=== PATIENT | female | born 1975 | race Caucasian/White ===

== ENCOUNTER 2016-07-31 18:23 | Inpatient (IN) | payer OTHER ==
[~2016-07-31] VITALS: Ht 169.7 cm; Wt 83.0 kg
[2016-07-31] MEDS ORDERED: Lactated Ringer's 1,000 ML IV PRN (19:39)
[2016-07-31] MEDS ORDERED: Carboprost 250 mCg/mL Inj IM PRN (19:40)
[2016-07-31] MEDS ORDERED: fentaNYL-PF 50 mCg/mL 2 mL Inj IVPUSH PRN (19:40)
[2016-07-31] MEDS ORDERED: Oxytocin 10 Unit/mL Inj IM PRN (19:40)
[2016-07-31] MEDS ORDERED: Hemorrhage Kit, Post Partum XX ONE (19:40)
[2016-07-31] MEDS ORDERED: Oxytocin 30 Units/500 mL LR 30 UNITS in IV Premix 1 EACH IV PRN (19:40)
[2016-07-31] MEDS ORDERED: Sodium Chloride LOK Flush 10 mL Syringe IVFLUSH PRN (19:40)
[2016-07-31] MEDS ORDERED: Methylergonovine 0.2 mg/mL Inj IM PRN (19:40)
[2016-07-31] MEDS ORDERED: Ondansetron 2 mg/mL 2 mL Inj IVPUSH PRN (19:40)
[2016-07-31] MEDS ORDERED: Penicillin G K Inj 5,000,000 UNITS in Dextrose 5% Minibag Plus 100 ML IV ONE (19:40)
[2016-07-31] MEDS ORDERED: Betameth Ace-Betam SodPhos 6 mg/mL 5 mL Inj IM ONE (19:45)
[2016-07-31 20:01] LABS: Mean Corpuscular Hemoglobin 31.8 pg (27.0-35.0); Mean Corpuscular Volume 90.8 fL (81-100)
[2016-07-31] MEDS: Lactated Ringer's 1,000 ML IV SCH (21:38)
--- NOTE | 2016-08-01 02:19 | HP ---
[address] [address] HISTORY AND PHYSICAL PATIENT: ANNETTE REESE : 1975 MR#: [id number] ADMIT: 07/31/2016 JOB ID: [id number] HISTORY OF PRESENT ILLNESS: This is a 40-year-old female. She is 9, para 4-2-2-6, at 35 weeks. Patient presented to [facility] for slight leaking of fluid at 2 p.m. today and gush of fluid at 4 p.m. today. She is a patient who has been seeing at [facility]. She started her OB care at 28 weeks. Her last period was November 29, 2015. Due date September 12, 2016, by last menstrual period. At 28 weeks ultrasound there was eight day difference. The final due date will be September 04, 2016. During her care, it was noticed that she has been using meth during and she also has a history of Vicodin abuse. The one hour glucose testing was 177. Her three hour glucose testing is not available, and her other blood tests noticed that she is Chlamydia and gonorrhea negative. Pap smear negative. Her hemoglobin A1c was 5.7. Her varicella immune, her HIV is negative. Hepatitis B negative. ALLERGIES: This patient has allergy reaction to SULFA. PAST MEDICAL HISTORY: Includes depression and anxiety. PAST SURGICAL HISTORY: History of cervical ablation and termination of . GYNECOLOGIC HISTORY: She has regular menstruation. Her last menstrual period November 29, 2015. OBSTETRICAL HISTORY: She is 9, para 6. She had her first in 1993, vaginal delivery at 33 weeks induction for preeclampsia. Second 1994, vaginal delivery at 37 weeks. Fourth in 1996, vaginal delivery at 38 weeks. Fifth 1998, vaginal delivery at 38 weeks. Sixth 1999, vaginal delivery at 38 weeks. Seventh was termination of in 2004. Eighth was a vaginal delivery in 2012 at 36 weeks. SOCIAL HISTORY: She has history of depression and anxiety. She is a chronic smoker. She smokes 1.5 packs per day for many years and decreased to 12 cigarettes a day from early May. She is still using alcohol during , one pack of beer per week. She also used meth; the last use was May 2016. She has a history of Vicodin abuse, she uses three more than prescribed dosage for shoulder pain. PHYSICAL EXAMINATION: The patient is afebrile. Blood pressure 109/78. Her pulse 99. She was confirmed rupture of membranes with clear fluid. She has occasional contractions. Cervical examination deferred at this time. heart tracing was category 1. Cardiac: RR. No murmur. Pulmonary: Bilaterally clear. Abdomen: Gravid, nontender. Extremities: Nontender. ASSESSMENT AND PLAN: This is a 40-year-old female 9, para 6, at 35 weeks of , premature rupture of membranes. At this time, no signs of infection. 1. We will start her on penicillin for unknown GBS status at premature rupture membranes. 2. We will start her on betamethasone 12 mg IM. If she has not delivered in 24 hours next dose will be due in 24 hours. 3. Patient can get epidural for pain if she prefers to in labor. 4. She will need social insurance adviser service for history of drug abuse. 5. We will monitor labor progress for abnormal GCT 177 and unknown GTT test. At this time, suspected gestational diabetes. 6. Expect vaginal delivery. 7. For grand multiparity will watch for hemorrhage. Get hemorrhagic medications ready in the delivery room. 8. Patient planned desire for tubal ligation after delivery. MTDD
[2016-08-01] MEDS: Penicillin G K Inj 3,000,000 UNITS in IV Premix 1 EACH IV SCH ×2 (02:43→06:52)
[2016-08-01] MEDS: Ampicillin Inj 2,000 MG in 0.9% Sodium Chloride 100 ML IV SCH ×3 (10:52→23:39)
--- NOTE | 2016-08-01 12:06 | DRSVH ---
PROCEDURE: US OB FOLLOW UP GROWTH INDICATIONS: GROWTH OUTSIDE/PRIOR DATING DATA: Last menstrual period (LMP): 11/29/15. LMP-based estimated date of delivery (CASSIUS): 09/04/16. First dating scan (date and location): 06/10/16, [facility]. Estimated date of delivery (CASSIUS) from first dating scan: 08/27/16. TECHNIQUE: Real-time scanning was performed of the fetus, with image documentation and biometric measurements. COMPARISON: [facility], US, US OB>14 WKS ANATOMY COMP, 06/10/2016, 13:14. FINDINGS: General: A single living intrauterine gestation is present. Presentation: Vertex. Placenta: Placental position is anterior, without previa. OB-PRESERVATIVE FILLER MACHINE OPERATOR Ultrasound Procedure Report Summary Fetus Summary Estimated Gestational Age from first dating scan: 36 weeks, 2 days Estimated Gestational Age from present scan: 35 weeks, 5 days Estimated Weight (EFW): 2725 g EFW percentile rank: 34 % Heart Rate: 127 bpm Findings(Amniotic Sac) Amniotic Fluid Index: 3.90 cm Biometry BiometryGroup Biparietal Diameter (Mean): 8.96 cm Gestational Age (BPD): 36 weeks, 2 days Head Circumference (Mean): 31.88 cm Gestational Age (HC): 35 weeks, 6 days Abdominal Circumference (Mean): 31.71 cm Gestational Age (AC): 35 weeks, 4 days Femur Length (Mean): 6.86 cm Gestational Age (FL): 35 weeks, 2 days Pelvis and Uterus Cervix Length: Not well seen. Measurement variability in biometric dating: +/- 10 days from 12-20 weeks gestation, +/- 2 weeks from 20-30 weeks gestation, +/- 3 weeks at 30 weeks gestation or more. Other: Not applicable. IMPRESSION: 1. Normal interval growth. 2. Oligohydramnios with amniotic fluid index measuring 3.9 cm in this patient with history of prematu re ruptured membranes. 3. Single wrap nuchal cord noted. Dayanna Sherwood RN given results by the medical education coordinator at 1020 hrs. 08/01/2016. Dictated by: Bernard KEITAA Interpreted: Katelyn Patel MD on 08/01/2016 at 12:04 Transcribed by: EDU on 08/01/2016 at 12:05 Approved by: Katelyn Patel MD, PhD on 08/01/2016 at 16:57
--- NOTE | 2016-08-01 13:28 | PROG NOTE ---
[address] [address] PROGRESS NOTE PATIENT: ANNETTE REESE : 1975 MR#: [id number] ADMIT: 07/31/2016 JOB ID: [id number] DATE: 08/01/2016 HISTORY OF PRESENTING ILLNESS: This is a 40-year-old 9, para 4-2-2-6 at 35 weeks and one day based on expected date of delivery of September 04, 2016, dated by last menstrual period and consistent with a 28-week ultrasound. The patient is admitted with premature rupture of membranes. Time of rupture July 31, 2016 at 1400. The patient continued to have a small amount of clear fluid with no uterine tenderness, good movement, no contractions, and denies fevers or chills. HISTORY: Problem list during this : 1. Late to care. 2. Advanced maternal age. 3. Multiparous. 4. History of preeclampsia and 1st was induced at 33 weeks. 5. History of delivery at 33 weeks secondary to induction for preeclampsia and history of spontaneous labor at 36 weeks. 6. Depression and anxiety, not on medication. The patient is seeing a psychiatrist at [facility] in [place]. The patient does not desire to start medication at this time. Would like to defer until her followup with the psychiatrist is scheduled, August 06, 2016. 7. Cigarette smoking. 8. Drug exposure during : Alcohol in the 1st two months of the in November and December; the patient quit since. Meth use May 2016; the patient quit since. 9. History of Vicodin abuse in the past. The patient denies current use. UDS screening negative during this admission. 10. Elevated 1-hour diabetes screen; 3 hours not done. 11. History of abnormal Pap smear in the past followed by normal Pap smears. 12. History of elective termination of and suction D and C in 2004. 13. The patient desires interval tubal ligation after six weeks recovery. Signed consent 2016. PHYSICAL EXAMINATION: Vital signs: Blood pressure 108/71, heart rate 81, respiratory rate 16, temperature 36.6. heart tones 120, moderate variability. Positive accelerations, no decelerations. Contractions irregular. General: Alert, oriented to time, place, and person. Head: Normocephalic, atraumatic. Neck: Supple. Chest: Equal air entry bilaterally. No added sounds. Cardiovascular: S1 plus S2 plus zero. Abdomen: Gravid. No tenderness. Lower extremities: No edema. Imaging: Ultrasound was performed today. Final report is pending. PAST SURGICAL HISTORY: History of right knee surgery 1990. LABORATORY: On admission white blood cell count 9.2, red blood cells 5.35, hemoglobin 17, hematocrit 48.6. Urine drug screen negative. labs: Blood type O positive. Rubella immune. RPR nonreactive. Hepatitis B nonreactive. HIV nonreactive. Urine culture negative June 06, 2016. Gonorrhea and Chlamydia screen negative June 11, 2016. Pap smear within normal limits and HPV negative. Diabetes screening 177. Three hours ordered and not done yet. ASSESSMENT: This is a 11-gnmff-oms nine para 4-2-2-6 at 35 weeks and 1 day with expected date of delivery of September 04, 2016, by last menstrual period and consistent with 28-week ultrasound, with: 1. premature rupture of membranes on July 31, 2016 at 1400. GBS unknown and cultures are pending. No signs of labor. No signs of chorioamnionitis. 2. Possible GDM, elevated 1 hr GTT, 3 hrs not done,S/P steroid. PLAN: 1. [facility] service (), stable PPROM at or after 34 weeks of gestation the current practice at [facility] based on new ACOG recommendations is to student services counselor patient and partner regarding induction of labor vs steroid and broad spectrum antibiotics to allow for steroid course or if possible up to 35 or 36 weeks is acceptable based on patient and partner decision after counseling. Discussed management plan, induction of labor at this time vs expectant management and complete steroid for lung maturity, followed by induction after 24 hours of the second dose of steroid or waiting for an additional week or two , as long as there are no signs of labor or infections. The risks, benefits, and alternatives of each approach were discussed with the patient. The patient dose not want to be induced today and desires to complete the steroid dose and to be induced 24 hours later. monitoring Q 12 hours. Vital signs Q4-6 hours. 2. Will continue to monitor glucose fasting and 1 hour post prandial with possible hyperglycemia secondary to steroid. MTDD
[2016-08-01] MEDS: Erythromycin Inj 250 MG in 0.9% Sodium Chloride 100 ML IV SCH ×3 (13:50→20:08)
[2016-08-01] MEDS: Lactated Ringer's 1,000 ML IV SCH ×2 (17:23→19:39)
[2016-08-01] MEDS ORDERED: Betameth Ace-Betam SodPhos 6 mg/mL 5 mL Inj ONE (21:45)
[2016-08-01] MEDS ORDERED: Betameth Ace-Betam SodPhos 6 mg/mL 5 mL Inj IM ONE (21:55)
[2016-08-02] MEDS: Erythromycin Inj 250 MG in 0.9% Sodium Chloride 100 ML IV SCH ×4 (02:05→20:27)
[2016-08-02] MEDS: Lactated Ringer's 1,000 ML IV SCH ×4 (03:39→20:27)
[2016-08-02] MEDS: Ampicillin Inj 2,000 MG in 0.9% Sodium Chloride 100 ML IV SCH ×4 (05:05→23:30)
[2016-08-02 07:19] LABS: BASOPHILS % (AUTO) 0.1 % (0-3); EOSINOPHILS % (AUTO) 0 % (0-5); MONOCYTES % (AUTO) 3.8 % (4-12); Mean Corpuscular Hemoglobin 31.3 pg (27.0-35.0); Mean Corpuscular Volume 94.8 fL (81-100); NEUTROPHILS % (AUTO) 88.2 % (40-74); Platelet Count 253 bil/L (150-400)
--- NOTE | 2016-08-02 12:25 | PROG NOTE ---
[address] [address] PROGRESS NOTE PATIENT: ANNETTE REESE : 1975 MR#: [id number] ADMIT: 07/31/2016 JOB ID: [id number] DATE: 08/02/2016 SUBJECTIVE: This is a 40-year-old 9, para 4-2-2-6 at 35 weeks and 2 days admitted for premature rupture of membranes. Time of rupture July 31, 2016 at 1400. Today the patient continued to have a small amount of clear fluid with no abdominal pain and good movement. No fever, no chills, and no contractions. Denies any foul odor, vaginal discharge, or fluid. PROBLEM LIST DURING THIS : 1. Late to care. 2. Advanced maternal age. 3. Multiparous. 4. History of preeclampsia and 1st was induced at 33 weeks. 5. History of delivery at 33 weeks secondary to induction for preeclampsia and history of spontaneous labor at 36 weeks. 6. Depression and anxiety, not on medication. The patient is seeing a psychiatrist at [facility]. The patient does not desire to start medication at this time. Would like to defer until her followup with the psychiatrist is scheduled, August 06, 2016. 7. Cigarette smoking. 8. Drug exposure during : Alcohol in the 1st two months of the in November and December; the patient quit since. Meth use May 2016; the patient quit since. 9. History of Vicodin abuse in the past. The patient denies current use. UDS screening negative during this admission. 10. Elevated 1-hour diabetes screen; 3 hours not done. 11. History of abnormal Pap smear in the past followed by normal Pap smears. 12. History of elective termination of and suction D and C in 2004. 13. The patient desires interval tubal ligation after six weeks recovery. Signed consent 2016. OBJECTIVE: Vital signs: Blood pressure 106/60, heart rate 81, respiratory rate 18, temperature 36.8. T-max since admission is 36.9. No fever. General: Alert. Oriented to time, place, and person. Respiratory: Breathing without difficulty. Abdomen: Gravid. No tenderness. Lower extremities: No edema. heart tones with a baseline of 120, moderate variability. Positive accelerations and no decelerations in the last 24 hours. The strip was reviewed. The patient on q.12 monitoring. Tocometry: Rare contractions. One or less contraction in 10 minutes. LABORATORY DATA: White blood cells 13.4, was 9.2 on admission. Hemoglobin 9.7, was 17 on admission. Hematocrit 29.4, was 48.6 on admission. UDS negative on admission. Group B strep culture is pending. ASSESSMENT: This is a 40-year-old 9, para 4-2-2-6 at 35 weeks and 1 day with: 1. Premature rupture of membranes since July 31, 2016 at 1400. GBS unknown and cultures pending. No signs of chorioamnionitis. No signs of labor. Will start induction of labor August 03, 2016 , for staff availability. Will continue to monitor and may induce earlier if having signs or symptoms of chorioamnionitis or signs of labor. 2. Elevated 1-hour diabetes screen; 3 hours not done. Possible gestational diabetes mellitus (GDM) or hyperglycemia possibly secondary to betamethasone. The second dose of betamethasone was given August 01, 2016 at 2155. Postprandial glucose 180s. We will continue to monitor fasting and postprandial glucose. The patient was counseled to follow a gestational diabetic diet. May consider medications if failed diet. 3. Smoker; nicotine patch ordered. 4. Anemia , significant drop in Hgb from 17 on admision to 9.7, repeat H/H 10.4 and 31%. No signs of active bleeding. Started on Iron. MTDD
[2016-08-02] MEDS ORDERED: Ascorbic Acid 500 mg Tablet PO SCH (20:30)
[2016-08-03] MEDS ORDERED: diphenhydrAMINE 50 mg Capsule PO PRN (02:10)
[2016-08-03] MEDS: Erythromycin Inj 250 MG in 0.9% Sodium Chloride 100 ML IV SCH (03:30)
[2016-08-03] MEDS: Lactated Ringer's 1,000 ML IV SCH ×8 (03:39→19:43)
[2016-08-03] MEDS ORDERED: Oxytocin 30 Units/500 mL LR 30 UNITS in IV Premix 1 EACH IV PRN ×2 (03:45→10:40)
--- NOTE | 2016-08-03 03:55 | PCM.PNOBIP ---
Subjective Date of Service Aug 03, 2016 Subjective starting to feel contractions are getting stronger. Gastrointestinal: Good Appetite, No N/V Labs Blood type O positive. Rubella immune. RPR nonreactive. Hepatitis B nonreactive. HIV nonreactive. Gonorrhea and Chlamydia screen negative June 11, 2016. Diabetes screening 177. Three hours ordered and not done yet. Labs Laboratory Tests 08/02/16 06:52: White Blood Count 13.4, Red Blood Count 3.10, Mean Corpuscular Volume 94.8, Mean Corpuscular Hemoglobin 31.3, Mean Corpuscular Hemoglobin Concent 33.0, Red Cell Distribution Width 14.2, Platelet Count 253, Neutrophils (%) (Auto) 88.2, Lymphocytes (%) (Auto) 7.5, Monocytes (%) (Auto) 3.8, Eosinophils (%) (Auto) 0, Basophils (%) (Auto) 0.1 08/02/16 12:30: Hemoglobin 10.4, Hematocrit 31.9 Exam Vital Signs Vital Signs Contraction frequency in minutes: MVUs: Vital Signs: VS reviewed, stable Heart Tracings Heart Tones Baseline 150 bpm Heart Rate Variability: Minimal (-moderate ) Heart Rate Accelleration: Absent Heart Rate Deceleration: Present Heart Rate Category: II Tocometry/IUPC Contraction frequency in minutes: MVUs: Sterile Vaginal Exam Cervical Dilation: 4 cms Cervical Effacement: 60 % Station: -3 Exam Abdomen: Uterus is (non-tender) General: Oriented X3, Cooperative OB Intrapartum Assessment/Plan Assessment This is a 39-cjbzi-bfo nine para 4-2-2-6 at 35 weeks and 3 day, CASSIUS of September 04, 2016, by last menstrual period and consistent with 28-week ultrasound, with: 1. Prtemature rupture of membranes on July 31, 2016 at 1400, GBS unknown and cultures are pending.On Ampicillin and erythromycin. 2. Early labor will augment with Pitocin. Favorable cervix clayton score 7 3. No signs of chorioamnionitis. FHT baseline was 120's and now 150's. 2. Possible GDM vs hyperglycemia secondary to steroid. , elevated 1 hr GTT, 3 hrs not done. 1 hr PP Glucose levels: 180's , then 145's, and 120's. Davey Posey MD Aug 03, 2016 03:55
[2016-08-03] MEDS: Ampicillin Inj 2,000 MG in 0.9% Sodium Chloride 100 ML IV SCH (06:00)
[2016-08-03 06:05] LABS: BASOPHILS % (AUTO) 0.1 % (0-3); EOSINOPHILS % (AUTO) 0.2 % (0-5); MONOCYTES % (AUTO) 9.6 % (4-12); Mean Corpuscular Hemoglobin 31.2 pg (27.0-35.0); Mean Corpuscular Volume 95.9 fL (81-100); NEUTROPHILS % (AUTO) 70.6 % (40-74); Platelet Count 233 bil/L (150-400)
[2016-08-03] MEDS ORDERED: Oxytocin 10 Unit/mL Inj IM PRN (10:40)
[2016-08-03] MEDS ORDERED: LANOlin HPA 7 Gm Ointment TOPICAL PRN (10:40)
[2016-08-03] MEDS ORDERED: Methylergonovine 0.2 mg/mL Inj IM PRN (10:40)
[2016-08-03] MEDS ORDERED: Witch Hazel-Glycerin Pads TOPICAL PRN (10:40)
[2016-08-03] MEDS ORDERED: Hemorrhage Kit, Post Partum XX ONE (10:40)
[2016-08-03] MEDS ORDERED: Carboprost 250 mCg/mL Inj IM PRN (10:40)
[2016-08-03] MEDS ORDERED: Benzocaine (Dermoplast) 20% 60 Gm Spray TOPICAL PRN (10:40)
--- NOTE | 2016-08-03 11:04 | PCM.OBVAG ---
Vaginal Delivery Date of Service Aug 03, 2016 Pre Operative Diagnosis Pre Operative Diagnosis 1. PPROM 2. 35 weeks gestation 3. AMA Post Operative Diagnosis Post Operative Diagnosis 1. PPROM 2. 35 weeks gestation 3. AMA Procedure Obstetical Procedure: Normal Spontaneous Vaginal Delivery Costume Specialist/Vocational Case Manager Provider and Vocational Case Manager: Teressa Thomas MD Resident: Rekha Srinivasan DO PGY1 Indication for Procedure Indication for Procedure This is a 40-year-old 9, para 4-2-2-6 at 35 weeks and 2 days admitted for premature rupture of membranes. Time of rupture July 31, 2016 at 1400. Induction: Induction of labor, Pitocin augmentation Findings Findings: This is a 40-year-old 9, para 4-2-2-6 at 35 weeks and 2 days admitted to L&D on 07/31/2016 for premature rupture of membranes. Time of rupture July 31, 2016 at 1400. At the time of admission there were no signs of infection. She was started on ampicillin and erythromycin for unknown GBS status at PPROM. She received two doses of betamethasone 24 hours apart. On 08/03 early labor was augmented with Pitocin. Her cervix was complete on 2018 around 09:17 am. Patient started to push efficiently at that time. Maternal pushing efforts were coached during the entire time. Infant head delivered in left occiput anterior position at 09:19 am. Nuchal cord x1 was noted. There was enough to be reduced over the baby's head. Infant placed over mom's chest. It was a single viable female , Apgars 7/8, weight of 2501g. Cord clamped and cut. Placenta followed spontaneously at 09:23 am. Upon inspection, it was noted to be intact with three-vessel cord marginally inserted. Placenta sent to Pathology. Inspection of the perineum revealed no lacerations. Mother is recovering in stable condition in labor and delivery room. The baby is recovering under observation at nursery. Obstetrical Findings: [place] (Female), Cord (3 Vessel), Weight ( 2501 grams), Presentation (Vertex), 1 minute (7), 5 minutes (8) Analgesia/Medications Procedural Analgesia: None Specimen Specimens: Placenta Blood Loss & Administration Blood Admin during procedure: No Post Procedure Plan Post Procedure Plan Routine monitoring with anticipated discharge on day 1. Pain control with Percocet and Ibuprofen. VTE Prophylaxis: SCDs Attending Statement I was present for the entire procedure and assisted Dr. Srinivasan as needed and agree with the above documentation. Rekha Srinivasan DO Aug 03, 2016 11:04 TIM VANEGAS DO Aug 04, 2016 09:49 Teressa Thomas MD Aug 08, 2016 11:56
[2016-08-03] MEDS: Ascorbic Acid 500 mg Tablet PO SCH ×2 (11:12→17:49)
[2016-08-03] MEDS: HYDROcodone-APAP 5-325 mg Tablet PO PRN ×3 (11:12→20:38)
[2016-08-04] MEDS: HYDROcodone-APAP 5-325 mg Tablet PO PRN ×3 (00:42→10:35)
[2016-08-04 07:02] LABS: BASOPHILS % (AUTO) 0.1 % (0-3); EOSINOPHILS % (AUTO) 0.5 % (0-5); MONOCYTES % (AUTO) 8.8 % (4-12); Mean Corpuscular Hemoglobin 31.8 pg (27.0-35.0); Mean Corpuscular Volume 96.5 fL (81-100); NEUTROPHILS % (AUTO) 66.4 % (40-74); Platelet Count 218 bil/L (150-400)
--- NOTE | 2016-08-04 08:22 | PCM.DC.OB ---
Obstetrical Discharge Summary Date of Service Aug 04, 2016 Date of hospital admission Jul 31, 2016 at 19:10 Date of Discharge: Aug 04, 2016 Providers Admitting Physician: Bora Lee MD Primary Care Physician: Eugenie Anderson MD Attending Physician: Bora Lee MD Problems: (1) Depression Status: Acute ICD Code: F32.9 (2) delivery Status: Acute ICD Code: O60.10X0 (3) Chronic anemia Status: Acute ICD Code: D64.9 Hospital Course: This is a 40-year-old 9, now para 4-3-2-7 at 35 weeks and 2 days admitted for premature rupture of membranes. Time of rupture July 31, 2016 at 1400. 1. Status post normal vaginal delivery on 08/03/16 2. Chronic anemia. 3. Depression. COMPLICATED WITH: 1. Late to care. 2. Advanced maternal age. 3. Multiparous. 4. History of preeclampsia and 1st was induced at 33 weeks. 5. History of delivery at 33 weeks secondary to induction for preeclampsia and history of spontaneous labor at 36 weeks. 6. Depression and anxiety, not on medication. The patient is seeing a psychiatrist at [facility]. The patient does not desire to start medication at this time. Would like to defer until her followup with the psychiatrist is scheduled, August 06, 2016. 7. Cigarette smoking. 8. Drug exposure during : Alcohol in the 1st two months of the in November and December; the patient quit since. Meth use May 2016; the patient quit since. 9. History of Vicodin abuse in the past. The patient denies current use. UDS screening negative during this admission. 10. Elevated 1-hour diabetes screen; 3 hours not done. 11. History of abnormal Pap smear in the past followed by normal Pap smears. 12. History of elective termination of and suction D and C in 2004. 13. The patient desires interval tubal ligation after six weeks recovery. Signed consent 2016. OUTCOME: [place] (Female), Cord (3 Vessel), Weight (2501 grams/5lb 8oz), Presentation (Vertex), 1 minute (7), 5 minutes (8). DISCHARGE DAY EXAM: Postopartum day number 1, patient is ambulating, tolerating regular diet without nausea or vomiting and voiding without difficulty. Pain was well controlled. No chest pain, no headache or change in vision. History of depression was on medications (Wellbutrin) before . Desires to wait to start medications until she call psychiatrist or until follow up with psychiatrist in 2 days. VS: 124/80 61 16 36.7 General: Alert, Oriented X3 Lungs: Clear to Auscultation, Clear to Percussion Heart: Regular Rate/Rhythm, Normal S1, Normal S2 Abdomen: Fundus firm Extremities: No tenderness/swelling, Edema 1+ Lochia: normal. LABS: Laboratory Tests 72 Hours Test 08/02/16 06:52 08/02/16 12:30 08/03/16 05:58 08/04/16 06:55 White Blood Count 13.4th/mm3 (3.8-10.1) 14.0th/mm3 (3.8-10.1) 14.4th/mm3 (3.8-10.1) Red Blood Count 3.10mil/mm3 (3.90-5.20) 2.95mil/mm3 (3.90-5.20) 3.11mil/mm3 (3.90-5.20) Hemoglobin 9.7g/dL (12.0-15.6) 10.4g/dL (12.0-15.6) 9.2g/dL (12.0-15.6) 9.9g/dL (12.0-15.6) Hematocrit 29.4% (35.0-46.0) 31.9% (35.0-46.0) 28.3% (35.0-46.0) 30.0% (35.0-46.0) Mean Corpuscular Volume 94.8fL (81-100) 95.9fL (81-100) 96.5fL (81-100) Mean Corpuscular Hemoglobin 31.3pg (27.0-35.0) 31.2pg (27.0-35.0) 31.8pg (27.0-35.0) Mean Corpuscular Hemoglobin Concent 33.0% (32.0-37.0) 32.5% (32.0-37.0) 33.0% (32.0-37.0) Red Cell Distribution Width 14.2% (12.3-15.4) 14.5% (12.3-15.4) 14.4% (12.3-15.4) Platelet Count 253bil/L (150-400) 233bil/L (150-400) 218bil/L (150-400) Neutrophils (%) (Auto) 88.2% (40-74) 70.6% (40-74) 66.4% (40-74) Lymphocytes (%) (Auto) 7.5% (14-46) 19.1% (14-46) 23.9% (14-46) Monocytes (%) (Auto) 3.8% (4-12) 9.6% (4-12) 8.8% (4-12) Eosinophils (%) (Auto) 0% (0-5) 0.2% (0-5) 0.5% (0-5) Basophils (%) (Auto) 0.1% (0-3) 0.1% (0-3) 0.1% (0-3) labs: Blood type O positive. Rubella immune. RPR nonreactive. Hepatitis B nonreactive. HIV nonreactive. Urine culture negative June 06, 2016. Gonorrhea and Chlamydia screen negative June 11, 2016. Pap smear within normal limits and HPV negative. Diabetes screening 177. Three hours ordered and not done. Disposition: home. Discharge Condition: stable. Diet Discharge Diet: No restrictions Activity Discharge Activity-General: Pelvic Rest for 6 weeks (no sex, no tampon and no douching), Balance rest and activity, No lifting >10 pounds for 4-6 weeks Dressing and Incision Care Hygiene: May shower Follow Up Plan Follow-up Provider (F9): Bora Lee MD or Maciej Posey MD Follow-up appointment: in 1-2 Weeks and then in 6 weeks for post- visit. Call your provider for: fever or chills, shortness of breath, heavy vaginal bleeding, heavy bleeding, epigastric pain, excessive constipation, vaginal discomfort, red painful breasts, other (leg swelling, pain, nausea and vomiting , headache or change in vision.) Docusate Sodium (Colace) 100 Mg Capsule 100 MG PO BID PRN PRN For Constipation Prescribed by: MACIEJ POSEY MD Ferrous Sulfate (Feosol) 325 Mg Tablet 325 MG PO DAILY Prescribed by: MACIEJ POSEY MD Hydrocodone-Acetaminophen 5-325 mg (Hydrocodone-Acetaminophen 5-325 mg) 1 Each Tablet 1-2 TABLET PO Q4H PRN PRN For Pain Prescribed by: MACIEJ POSEY MD Ibuprofen (Ibuprofen) 600 Mg Tablet 600 MG PO QID PRN PRN For Pain Prescribed by: MD Kalpesh DEGROOT Omaima A MD Aug 04, 2016 08:15
[2016-08-04] MEDS ORDERED: DOCU-41 PO (08:29)
[2016-08-04] MEDS ORDERED: IBUP-1827 PO (08:29)
[2016-08-04] MEDS ORDERED: FERR-74 PO (08:29)
--- NOTE | 2016-08-04 08:32 | PCM.DIOB ---
Obstetrical Disch Instruction Dates of Hospitalization Date of Hospital Admission Jul 31, 2016 at 19:10 Providers Admitting Physician: Bora Lee MD Primary Care Physician: Eugenie Anderson MD Attending Physician: Bora Lee MD Discharge Diagnosis Discharge Diagnosis Status post delivery and rupture of membranes. Anemia Problems: (1) delivery Status: Acute ICD Code: O60.10X0 (2) Chronic anemia Status: Acute ICD Code: D64.9 Follow Up Plan Follow Up Plan Disposition: home. Discharge Condition: stable. Diet Discharge Diet: No restrictions Activity Discharge Activity-General: Pelvic Rest for 6 weeks (no sex, no tampon and no douching), Balance rest and activity, No lifting >10 pounds for 4-6 weeks Dressing and Incision Care Hygiene: May shower Follow Up Plan Follow-up Provider (F9): Bora Lee MD or Davey Posey MD Follow-up appointment: in 1-2 Weeks and then in 6 weeks for post- visit. Call your provider for: fever or chills, shortness of breath, heavy vaginal bleeding, heavy bleeding, epigastric pain, excessive constipation, vaginal discomfort, red painful breasts, other (leg swelling, pain, nausea and vomiting , headache or change in vision.) Davey Posey MD Aug 04, 2016 08:26
[2016-08-04] MEDS ORDERED: HYDR-4003 PO (08:52)
[2016-08-04] MEDS: Ascorbic Acid 500 mg Tablet PO SCH (09:48)
--- NOTE | 2016-08-04 10:47 | NUR ---
Social work note - Family assessment Danuta Cali delivered baby girl on 08/03/16. FOB is Nolan Ellis. Reason for SW consult: Anxiety and Depression, Reported heavy use of ETOh and drug use in early . Current living situation: Pt lives in [place] with her Significant other Nolan and several of their 7 children. Pt states that her oldest is out of the house, independent. No previous CPS involvement with other children. Substance Use Hx: Pt states that early in her , before she knew she was and when she was considering ending the , she drank heavily on the weekends. She states that she does not have an alcohol problem and spoke with her power reactor supervisor extensively about regrets for her behaviors. She states that she has taken Vicodin for pain early in her . Denies any drug use - no dependency issues. Mental Health: Pt endorses anxiety and depression. She disclosed that she had a lot of childhood trauma that she is seeking counseling and psychiatric services through [facility] in [place]. She identifies that she will likely restart antidepression medications - has an appointment on ThursdayAugust 06 to see her provider. She denies any suicidal ideation. No previous suicidal attempts. DV issues: Pt denies any DV issues. Supports: Pt and SO have a large pilot point of support - they have family in the area, older children who are able to help with care at home, a good mental health team and feel equipped to parent their 7th child. Pt has a PCP and is already established with [facility]. CRIME SCENE PHOTOGRAPHER explained that cord stat blood test is pending. Pt's UDS during her care and her care at the hospital have been negative. CRIME SCENE PHOTOGRAPHER explained that CPS will be notified if cord stat is positive. Pt and family feel that they are being prejudged - CRIME SCENE PHOTOGRAPHER active listened and provided support. They acknowledge process and deny any other questions. Disposition: Parents plan to d/c with baby - No previous CPS involvement with other children. Parents deny any drug use, feel prepared for baby at home, have mental health services established and have good supports. CRIME SCENE PHOTOGRAPHER will follow up with CPS if indicated from cord stat results. No other needs identified. JONATHAN Stewart
[2016-08-04 12:34] VITALS: BP 125/78; PULSE 69; RESP 16
--- NOTE | 2016-08-07 11:05 | PATH ---
SURGICAL PATHOLOGY Attending Physician:Teressa Thomas, CASE STATUS: Signed Out PATIENT NAME: ANNETTE REESE PID: [id number] : 1975 DATE COLLECTED:08/03/2016 00:00 SPECIMEN: Placenta CLINICAL HISTORY: 1. PLACENTA FINAL DIAGNOSIS: 1.PLACENTA (484 GRAMS): MATURE PLACENTA WITH PATCHY ACUTE CHORIOAMNIONITIS. NEGATIVE FOR FUNISITIS. ICD10 CODE O41.1 GROSS DESCRIPTION: The specimen is received in formalin, labeled with the patient's name and consists of an intact placenta and includes placental disc (484 g, 18.5 x 15.2 x 3.5 cm), umbilical cord received in 2 pieces (length-15.5 cm, diameter-1.5 x 0.8 cm) and membranes. The membranes are ruptured 3.5 cm from the free edge of the placenta and are semi-translucent. The umbilical cord has a furcate insertion 2.3 cm from the edge of the placenta and contains 3 vessels. The surface is smooth and shiny with no evidence of meconium. The maternal surface is dark maroon with normal cotyledon formation. The placental disc is spongy and contains a yellow-orange rubbery well-circumscribed nodule (1.3 x 1.1 x 0.9 cm) located 0.6 cm from the and 2.5 cm from the maternal surfaces. No hematomas, other nodules, masses, or lesions are identified. Section code: (A) edge of placenta with membranes, umbilical cord; (B, C-D, E-F) placenta, 3 full thickness sections. 08/05/16 MICRO DESCRIPTION: See diagnosis. ICD-9 CODES: CPT CODES: 1: 87954 Electronically Signed Out Timothy Echevarria MD [facility] [address], [place] [address] Technical component performed at [facility], [facility] [address], [place], [address]
== END 2016-08-04 14:14 | disposition home or self-care (01) | DRG 775 ==
LOC: FBCO 18:23 → FBC 19:10
PROVIDERS: ADMIT Obstetrics & Gynecology; ATTEND Obstetrics & Gynecology
PROC: 10E0XZZ Delivery of Products of Conception, External Approach (ICD-10-PCS; principal; 2016-08-03)
DX: O42.113 Preterm premature rupture of membranes, onset of labor more than 24 hours following rupture, third trimester (principal); O99.314 Alcohol use complicating childbirth; F32.9 Major depressive disorder, single episode, unspecified; Z3A.35 35 weeks gestation of pregnancy; O09.43 Supervision of pregnancy with grand multiparity, third trimester; O09.523 Supervision of elderly multigravida, third trimester; O99.343 Other mental disorders complicating pregnancy, third trimester; O99.333 Smoking (tobacco) complicating pregnancy, third trimester; F17.210 Nicotine dependence, cigarettes, uncomplicated; Z72.89 Other problems related to lifestyle; Z37.0 Single live birth; O09.33 Supervision of pregnancy with insufficient antenatal care, third trimester